=== PATIENT | female | born 1950 | race African-American/Black ===

== ENCOUNTER 2017-08-18 04:31 | Emergency (ER) | payer OTHER ==
[2017-08-18] MEDS ORDERED: NA CHLORIDE 0.9% 1,000 ML IV ONE (04:32)
[2017-08-18] MEDS ORDERED: EPINEPHrine 1 MG/10 ML SYR IV ONE (04:32)
[2017-08-18] MEDS ORDERED: D50W 25 GM/50 ML SYRINGE IV ONE ×2 (04:32)
[2017-08-18] MEDS ORDERED: ATROPINE SULF 1 MG/10 ML SYR IV ONE (04:32)
[2017-08-18] MEDS ORDERED: Magnesium Sulfate 2gm IVPB 4 G/100 ML BAG IV ONE (04:53)
[2017-08-18] MEDS ORDERED: FENTANYL CITR 100 MCG/2 ML ONE ×2 (04:55→05:38)
[2017-08-18 05:31] LABS: Blood Gas Oxyhemoglobin 88.9 % (94-97); Blood O2 Saturation 89.4 % (92-98.5)
[2017-08-18] MEDS ORDERED: NA CHLORIDE 0.9% 100 ML IV ONE (05:38)
[2017-08-18 05:59] LABS: Absolute Lymphocytes (CBC) 5.2 K/uL (0.7-4.9); Absolute Monocytes 0.6 K/uL (0.1-1.3); Absolute Neutrophil 6.9 K/uL (1.8-8.0); Basophils % 0.3 % (0-1.3); Eosinophils % 2.1 % (0-4.4); Hematocrit 37.4 % (36.0-45.0); Lymphocytes % 40.3 % (15.3-44.8); MCH 31.3 pg (27.0-35.0); MCV 102.9 fL (80-100); MPV 7.8 fL (7.6-11.3); Monocytes % 4.3 % (3.3-12.3); RBC Red Blood Cell Count 3.64 M/uL (3.86-4.86)
[2017-08-18] MEDS ORDERED: NOREPINEPHRINE 4mg/D5W 250mL 4 MG/250 ML BAG IV ONE (06:00)
[2017-08-18 06:09] LABS: Protime INR 1.14
[2017-08-18 06:14] LABS: Potassium 3.7 mEq/L (3.6-5.0)
[2017-08-18 06:18] LABS: Albumin 2.8 g/dL (3.2-5.5); Bilirubin Direct 0.1 mg/dL (0-0.2); Bilirubin Total 0.5 mg/dL (0.3-1.2); Magnesium 3.1 mg/dL (1.8-2.5); Protein, Total 6.1 g/dL (6.0-8.3)
[2017-08-18 06:22] LABS: CKMB Creatine Kinase MB 4.6 ng/ml (0.3-4.0)
[2017-08-18] MEDS ORDERED: EPINEPHrine 1 MG/10 ML SYR ONE (06:23)
[2017-08-18 06:38] LABS: Blood Gas Oxyhemoglobin 84.8 % (94-97); Blood O2 Saturation 85.7 % (92-98.5)
[2017-08-18] MEDS ORDERED: SODIUM BICARB 50 MEQ/50ML VIAL ONE (06:46)
[2017-08-18] MEDS ORDERED: NA CHLORIDE 0.9% 1,000 ML ONE (06:46)
[2017-08-18 06:51] LABS: Blood Morphology Comment NOT SEEN (NOT SEEN); Platelet Estimate ADEQ
--- NOTE | 2017-08-18 07:35 | EDPHYS ---
Physician Documentation [facility] Name: Jasmyne Patel Age: 67 yrs Sex: Female : 1950 Arrival Date: 08/18/2017 Time: 04:33 Bed 2 Private MD: ED Physician Kenneth Nix HPI: 08/18 05:22 This 67 yrs old Black Female presents to ER via Unassigned with complaints of CPR. ps1 05:22 Preceding the arrest, the patient collapsed. The arrest occurred at home. Pre-hospital ps1 course: The arrest was witnessed by EMS. Bystanders at the scene did not perform CPR. EMS care prior to arrival: initiation of ACLS, ACLS has been in progress for 3 minutes. ACLS details:. Unable to obtain HPI due to comatose state. called for lift assist. BS low. Gave D50. Went unresponsive 3 min out with HR in 30's. CPR initiated [employer]. . Historical: - Allergies: 06:56 Codeine; mg2 - Home Meds: 07:35 atenolol 100 mg Oral tab 2 tabs once daily [Active]; glipizide 5 mg Oral tab 1 tab 2 ea times per day [Active]; metformin 1,000 mg Oral tab 1 tab 2 times per day [Active]; levothyroxine 75 mcg tab 1 tab once daily [Active]; metformin 1,000 mg Oral tr24 2 tabs once daily [Active]; amlodipine 10 mg tab 1 tab once daily [Active]; aspirin 81 mg Oral chew 1 tab once daily [Active]; benzonatate 100 mg oral cap 1 cap 3 times per day [Active]; bumetanide 2 mg Oral tab 1 tab once daily [Active]; - PMHx: 06:56 Diabetes - NIDDM; Hypertension; mg2 - Immunization history:: Adult Immunizations up to date. - Social history:: Smoking status: unknown. - Ebola Screening: : No symptoms or risks identified at this time. ROS: 05:22 Unable to obtain ROS due to comatose state. ps1 Exam: 05:22 Constitutional: The patient appears comatose. ps1 05:22 Head/face: Exam is negative for obvious evidence of injury or deformity, deformity. 05:22 Eyes: Pupils: are fixed and dilated. 05:22 ENT: vomit in the oropharynx. Intubated 7.5, 23 at lips. . 05:22 Cardiovascular: pulseless. 05:22 Respiratory: agonal breathing. 05:22 Abdomen/GI: obese. 05:22 Neuro: Orientation: unable to test, the patient is comatose, Mentation: unable to test, the patient is comatose. Vital Signs: 04:50 BP 139 / 58; Pulse 113; Resp 16 A; Temp 97(C); Pulse Ox 95% on 100% FiO2 ETT vent; mg2 Weight 190.51 kg; Height 5 ft. 6 in. (167.64 cm); 05:30 BP 83 / 57; Pulse 74; Resp 16 A; Temp 97.1; Pulse Ox 91% on ETT vent; mg2 05:45 BP 89 / 55; Pulse 80; Resp 16; Pulse Ox 91% on 100% FiO2 ETT vent; mg2 06:08 BP 76 / 51; Pulse 77; Resp 16 A; Pulse Ox 89% on 100% FiO2 ETT vent; mg2 06:15 BP 90 / 49; Pulse 75; Resp 16; Pulse Ox 89% on 100% FiO2 ETT vent; mg2 06:25 BP 92 / 58; Pulse 79; Resp 16 A; Temp 97(C); Pulse Ox 90% on 100% FiO2 ETT vent; mg2 06:45 BP 102 / 65; Pulse 72; Resp 16 A; Temp 97.1(C); Pulse Ox 90% on 100% FiO2 ETT vent; mg2 07:00 BP 107 / 67; Pulse 77; Resp 16; Pulse Ox 90% on 100% FiO2 ETT vent; mg2 07:15 BP 112 / 66; Pulse 78; Resp 16 A; Temp 97.1(C); Pulse Ox 92% on 100% FiO2 ETT vent; tl2 07:30 BP 115 / 61; Pulse 87; Resp 16 A; Pulse Ox 93% on 100% FiO2 ETT vent; tl2 07:40 BP 105 / 76; Pulse 81; Resp 16 A; Pulse Ox 92% on 100% FiO2 ETT vent; tl2 08:18 BP 89 / 54; Pulse 80; Resp 16 A; Pulse Ox 93% on 100% FiO2 ETT vent; tl2 04:50 Body Mass Index 67.79 (190.51 kg, 167.64 cm) mg2 08:18 PHI Transport monitor. tl2 Brian Coma Score: 04:50 Eye Response: none(1). Verbal Response: none(1). Motor Response: none(1). Total: 3. mg2 05:22 Eye Response: none(1). Verbal Response: none(1). Motor Response: none(1). Total: 3. ps1 Ventilator: 04:50 Fi02: 100%; Rate: 16min; ET tube: 7.5 mm (Oral); mg2 05:22 Fi02: 100%; Rate: 16min; T.V.: 600ml; Peep: 5cm; ET tube: 7.5 mm (Oral); ps1 Procedures: 07:35 CPR: See CPR flow sheet. Initial patient assessment: unresponsive, agonal respirations, ps1 pupils fixed \T\ dilated, Ambu ventilation, The presenting cardiac rhythm is asystole. Compressions: began prior to arrival. regained rhythm, Family notified. Intubation: Ventilated with 100% NRB prior to procedure. Intubated orally using # 4 William blade with 7.5 mm ETT. was successful on first attempt. Ventilated with ventilator. Tube secured with ETT little at right side of mouth measured 23 cm at lip. Placement verified by CXR, Patient tolerated likely aspiration of stomach contents prior to being able to intubate. . Peripheral line: bilateral anterior tibia intraosseous line with EZ-IO. MDM: 05:51 Patient medically screened. ps1 07:35 Data reviewed: vital signs, nurses notes, EMS record, lab test result(s), EKG, ps1 radiologic studies, plain films. ED course: ACLS followed per protocol. ROSC after 20 min CPR. Lost pulses after about 10 minutes. Restarted ACLS ROSC after a round of CPR. Placed patient on levophed and bicarb gtt. Push dose epi 1mg for hypotension. Pt transferred to [facility] [place] for higher level of care. Critical. 08/18 05:30 Order name: ABG Arterial Blood Gas; Complete Time: 05:52 EDMS 08/18 05:32 Order name: BNP; Complete Time: 06:26 ps1 08/18 05:32 Order name: CBC with Diff; Complete Time: 07:23 ps1 08/18 05:32 Order name: Ckmb; Complete Time: 06:26 ps1 08/18 05:32 Order name: CPK; Complete Time: 06:26 ps1 08/18 05:32 Order name: LFT's; Complete Time: 06:26 ps1 08/18 05:32 Order name: Magnesium; Complete Time: 06:26 ps1 08/18 05:32 Order name: PT-INR; Complete Time: 06:15 ps1 08/18 05:32 Order name: Ptt, Activated; Complete Time: 06:15 ps1 06 05:32 Order name: Troponin (emerg Dept Use Only); Complete Time: 06:26 ps1 08/18 05:32 Order name: CMP; Complete Time: 06:26 ps1 08/18 06:18 Order name: Manual Differential; Complete Time: 07:23 EDMS 06 06:28 Order name: ABG; Complete Time: 07:23 ps1 08/18 05:32 Order name: XRAY Chest (1 view) ps1 08/18 05:32 Order name: EKG; Complete Time: 05:33 ps1 06 05:32 Order name: Cardiac monitoring; Complete Time: 05:56 ps1 06 05:32 Order name: EKG - Nurse/Tech; Complete Time: 05:56 ps1 08/18 05:32 Order name: IV Saline Lock; Complete Time: 05:56 ps1 06 05:32 Order name: Labs collected and sent; Complete Time: 05:56 ps1 06 05:32 Order name: O2 Per Protocol; Complete Time: 05:57 ps1 06 05:32 Order name: O2 Sat Monitoring; Complete Time: 05:57 ps1 0606 05:32 Order name: Urine Dipstick-Ancillary (obtain specimen); Complete Time: 05:57 ps1 Administered Medications: 04:35 Drug: EPINEPHrine 0.1mg/mL 1:10,000 1 mg Route: IVP; Site: Other; mg2 04:39 Follow up: Response: No adverse reaction; No change in condition tl2 04:35 Drug: D50W 50 ml Route: IVP; Site: Other; mg2 08:04 Follow up: Response: No adverse reaction tl2 04:36 Drug: NS 0.9% 1000 ml Route: IV; Rate: 1 bolus; Site: Other; mg2 08:04 Follow up: IV Status: Completed infusion; IV Intake: 1000ml tl2 04:38 Drug: EPINEPHrine 0.1mg/mL 1:10,000 1 mg Route: IVP; Site: Other; mg2 04:41 Follow up: Response: No adverse reaction; No change in condition tl2 04:41 Drug: EPINEPHrine 0.1mg/mL 1:10,000 1 mg Route: IVP; Site: Other; mg2 04:43 Follow up: Response: No adverse reaction; No change in condition tl2 04:42 Drug: Sodium Bicarbonate 1 amp Route: IVP; Site: Other; mg2 04:45 Follow up: Response: No adverse reaction; No change in condition tl2 04:44 Drug: EPINEPHrine 0.1mg/mL 1:10,000 1 mg Route: IVP; Site: Other; mg2 04:47 Follow up: Response: No adverse reaction; Cardiac rhythm changed tl2 04:47 Drug: Atropine 1 mg Route: IVP; Site: Other; mg2 04:51 Follow up: Response: No adverse reaction; Cardiac rhythm changed tl2 04:53 Drug: Magnesium Sulfate 4 grams Route: IVPB; Infused Over: 2 hrs; Site: Other; mg2 06:30 Follow up: IV Status: Completed infusion tl2 04:54 Drug: fentaNYL (PF) 100 mcg Route: IVP; Site: right hand; mg2 08:06 Follow up: Response: No adverse reaction tl2 05:10 Drug: EPINEPHrine 0.1mg/mL 1:10,000 1 mg Route: IVP; Site: Other; mg2 05:13 Follow up: Response: No adverse reaction; Cardiac rhythm changed tl2 05:33 CANCELLED (Duplicate Order): fentaNYL (PF) 1 mcg/kg/h IV at calculated rate once tl2 05:55 Drug: fentaNYL (PF) 50 mcg/h {Note: started at 50 mcg/hour.} Route: IV; Rate: tl2 calculated rate; Infused Over: 1 Titrate; Site: right hand; Delivery: Primary tubing; 08:02 Follow up: IV Status: Infusion continued upon transfer tl2 06:00 Drug: Levophed (4 mg/250 mL D5W 4 mcg/min Route: IV; Rate: calculated rate; Site: Other;mg2 08:07 Follow up: IV Status: Infusion continued upon transfer tl2 06:10 Drug: NS 0.9% 1000 ml {Note: left IO.} Route: IV; Rate: 200 ml/hr; Site: Other; bb 08:12 Follow up: IV Status: Infusion continued upon transfer bb 06:22 Drug: EPINEPHrine 0.1mg/mL 1:10,000 1 mg Route: IVP; Site: right antecubital; ea 06:25 Follow up: Response: No adverse reaction; No change in condition tl2 06:22 Drug: Sodium Bicarbonate 1 amp Route: IVP; Site: Other; mg2 08:07 Follow up: Response: No adverse reaction tl2 Point of Care Testing: Blood Glucose: 04:50 Blood Glucose: 347 mg/dL; mg2 Ranges: Critical Glucose Levels:Adult <50 mg/dl or >400 mg/dl <40 mg/dl or >180 mg/dl Disposition: 07:35 Critical Care:. ps1 07:40 Chart complete. ps1 Disposition: 08/18/17 07:34 Transfer ordered to [facility]. Diagnosis are POST ARREST, CPR. - Reason for transfer: Higher level of care. - Accepting physician is Omarazakian. - Condition is Critical. - Problem is new. - Symptoms have improved. Critical care time excluding procedures: 07:35 Critical care time: Bedside Care: 65 minutes, Consultation: 10 minutes, Family ps1 Intervention: 20 minutes. Total time: 95 minutes Signatures: Dispatcher [employer] EDMS Lela Guzmán RN RN bb Elise Hogue RN RN hb Isaura Holden RN RN tl2 Leslie Briones RN RN ea Singer, Phillip, MD MD ps1 Clifford Camilo RN RN mg2 Corrections: (The following items were deleted from the chart) 05:33 05:32 fentaNYL (PF) 1 mcg/kg/h IV at calculated rate once ordered. ps1 tl2 05:52 05:33 Arterial Blood Gas+RC.LAB.BRZ ordered. EDKY EDMS 07:35 07:34 08/18/2017 07:34 Transfer ordered to [facility]. Diagnosis is ps1 POST ARREST. Reason for transfer: Higher level of care. Accepting physician is Omarainian. Condition is Critical. Problem is new. Symptoms have improved. ps1 07:38 06:56 Home Meds: Unable to obtain; mg2 ea 08:41 07:35 08/18/2017 07:34 Transfer ordered to [facility]. Diagnosis is hb POST ARREST; CPR. Reason for transfer: Higher level of care. Accepting physician is Omarainian. Condition is Critical. Problem is new. Symptoms have improved. ps1
--- NOTE | 2017-08-18 07:35 | ER ---
Nurse's Notes [facility] Name: Jasmyne Patel Age: 67 yrs Sex: Female : 1950 Arrival Date: 08/18/2017 Time: 04:33 Bed 2 Private MD: Diagnosis: POST ARREST;CPR Presentation: 08/18 04:30 Presenting complaint: EMS states: Called out for lift assist and possible blood sugar mg2 problem. Pt was sitting on the floor, was AOx4, initial BGL was 220. Family had given pt orange juice. Repeat BGL was 420. Pt became unresponsive en route to ER and was asystole in triage. CPR started at 0425. Care prior to arrival: CPR manually performed by EMS and is still in progress. Compressions began at 04:25. 04:30 Transition of care: patient was not received from another setting of care. Onset of mg2 symptoms was August 18, 2017 at 04:00. Risk Assessment: Do you want to hurt yourself or someone else? Patient reports no desire to harm self or others. Initial Sepsis Screen: Does the patient meet any 2 criteria? No. Patient's initial sepsis screen is negative. Does the patient have a suspected source of infection? No. Patient's initial sepsis screen is negative. 04:30 Acuity: ANKITA 1 mg2 04:30 Method Of Arrival: EMS: [facility] mg2 Triage Assessment: 04:30 General: see CPR assessment. mg2 04:30 General: Appears unresponsive. Pain: Unable to use pain scale. Patient is unresponsive. tl2 Historical: - Allergies: 06:56 Codeine; mg2 - Home Meds: 07:35 atenolol 100 mg Oral tab 2 tabs once daily [Active]; glipizide 5 mg Oral tab 1 tab 2 ea times per day [Active]; metformin 1,000 mg Oral tab 1 tab 2 times per day [Active]; levothyroxine 75 mcg tab 1 tab once daily [Active]; metformin 1,000 mg Oral tr24 2 tabs once daily [Active]; amlodipine 10 mg tab 1 tab once daily [Active]; aspirin 81 mg Oral chew 1 tab once daily [Active]; benzonatate 100 mg oral cap 1 cap 3 times per day [Active]; bumetanide 2 mg Oral tab 1 tab once daily [Active]; - PMHx: 06:56 Diabetes - NIDDM; Hypertension; mg2 - Immunization history:: Adult Immunizations up to date. - Social history:: Smoking status: unknown. - Ebola Screening: : No symptoms or risks identified at this time. Screenin:30 Abuse screen: Denies threats or abuse. Nutritional screening: No deficits noted. mg2 Tuberculosis screening: No symptoms or risk factors identified. 07:00 Fall Risk None identified. mg2 Assessment: 04:30 CPR assessment: unresponsive, pupils fixed \T\ dilated, no respiratory effort, Ambu mg2 ventilation, pale, pulses present w/ compressions. Cardiac rhythm is asystole. General: Behavior is unresponsive. Neuro: Level of Consciousness is unresponsive. EENT:. Cardiovascular: Rhythm is asystole. Respiratory: Airway is patent Respiratory pattern is apnea. Derm: Skin is pale. 04:37 Reassessment: Pulse check: No pulse CPR continued. mg2 04:41 Reassessment: No pulse, no cardiac movement on US, CPR continued. mg2 04:43 Reassessment: No pulse, asystole, CPR continued. mg2 04:45 Reassessment: PEA, no pulse, CPR continued. mg2 04:47 Reassessment: Positive pulse, Maurizio rhythm that spiked to 126 before settling at 85. mg2 EKG obtained at this time. 05:09 Reassessment: No pulse at this time, CPR started. PEA. mg2 05:11 Reassessment: No pulse, PEA, CPR continued. mg2 05:13 Reassessment: Positive pulse HR 87 on monitor. New orders from , see MAR. mg2 06:20 Reassessment: Pt continues to have strong radial pulse. See MAR for medication orders. mg2 Awaiting to call report and will call for helicopter. 08:14 Reassessment: PHI at bedside, report given to Flight nurse. Pt intubated with ET tube tl2 in place, OG tube in place, IV sites intact with fluid infusing, limon catheter in place, Pt family at bedside. Vital Signs: 04:50 BP 139 / 58; Pulse 113; Resp 16 A; Temp 97(C); Pulse Ox 95% on 100% FiO2 ETT vent; mg2 Weight 190.51 kg; Height 5 ft. 6 in. (167.64 cm); 05:30 BP 83 / 57; Pulse 74; Resp 16 A; Temp 97.1; Pulse Ox 91% on ETT vent; mg2 05:45 BP 89 / 55; Pulse 80; Resp 16; Pulse Ox 91% on 100% FiO2 ETT vent; mg2 06:08 BP 76 / 51; Pulse 77; Resp 16 A; Pulse Ox 89% on 100% FiO2 ETT vent; mg2 06:15 BP 90 / 49; Pulse 75; Resp 16; Pulse Ox 89% on 100% FiO2 ETT vent; mg2 06:25 BP 92 / 58; Pulse 79; Resp 16 A; Temp 97(C); Pulse Ox 90% on 100% FiO2 ETT vent; mg2 06:45 BP 102 / 65; Pulse 72; Resp 16 A; Temp 97.1(C); Pulse Ox 90% on 100% FiO2 ETT vent; mg2 07:00 BP 107 / 67; Pulse 77; Resp 16; Pulse Ox 90% on 100% FiO2 ETT vent; mg2 07:15 BP 112 / 66; Pulse 78; Resp 16 A; Temp 97.1(C); Pulse Ox 92% on 100% FiO2 ETT vent; tl2 07:30 BP 115 / 61; Pulse 87; Resp 16 A; Pulse Ox 93% on 100% FiO2 ETT vent; tl2 07:40 BP 105 / 76; Pulse 81; Resp 16 A; Pulse Ox 92% on 100% FiO2 ETT vent; tl2 08:18 BP 89 / 54; Pulse 80; Resp 16 A; Pulse Ox 93% on 100% FiO2 ETT vent; tl2 04:50 Body Mass Index 67.79 (190.51 kg, 167.64 cm) mg2 08:18 PHI Transport monitor. tl2 [place] Coma Score: 04:50 Eye Response: none(1). Verbal Response: none(1). Motor Response: none(1). Total: 3. mg2 05:22 Eye Response: none(1). Verbal Response: none(1). Motor Response: none(1). Total: 3. ps1 ED Course: 04:30 Arm band placed on right wrist. mg2 04:30 Patient has correct armband on for positive identification. Bed in low position. mg2 Intubation: 7.5 Fr. ETT placed orally. Performed by Kenneth Nix MD Successful on first attempt. Placement verified by CXR, CO2 detector w/ + color change, auscultating bilateral breath sounds, Ventilated with Ambu bag. 04:33 Patient arrived in ED. rg2 04:35 Inserted intraosseous access in left, using aseptic technique tibial tuberosity. placed mg2 by Dr. Nix. Inserted intraosseous access in right, using aseptic technique tibial tuberosity. placed by Dr. Nix. 04:50 Inserted saline lock: 22 gauge in right hand, using aseptic technique. mg2 04:53 Kenneth Nix MD is Attending Physician. rg2 05:00 NGT: inserted 16 Fr. via right nare. verified placement of air over stomach, verified mg2 return of gastric contents, to intermittent suction. 05:30 Limon cath inserted, using sterile technique, 16 Fr., by ED staff, balloon inflated. mg2 06:00 Inserted saline lock: 18 gauge in right antecubital area, using aseptic technique. mg2 Blood collected. 06:11 Triage completed. mg2 06:15 Notified ED physician of a critical lab result(s). CO2 14, BGL 619, Dr Nix notified bb awaiting new orders. 06:30 X-ray completed. Portable x-ray completed in exam room. Patient tolerated procedure kw well. 06:35 XRAY Chest (1 view) In Process Unspecified. EDMS 07:13 Clifford Camilo, RN is Primary Nurse. mg2 08:01 No provider procedures requiring assistance completed. Patient transferred, IV remains tl2 in place. Administered Medications: 04:35 Drug: EPINEPHrine 0.1mg/mL 1:10,000 1 mg Route: IVP; Site: Other; mg2 04:39 Follow up: Response: No adverse reaction; No change in condition tl2 04:35 Drug: D50W 50 ml Route: IVP; Site: Other; mg2 08:04 Follow up: Response: No adverse reaction tl2 04:36 Drug: NS 0.9% 1000 ml Route: IV; Rate: 1 bolus; Site: Other; mg2 08:04 Follow up: IV Status: Completed infusion; IV Intake: 1000ml tl2 04:38 Drug: EPINEPHrine 0.1mg/mL 1:10,000 1 mg Route: IVP; Site: Other; mg2 04:41 Follow up: Response: No adverse reaction; No change in condition tl2 04:41 Drug: EPINEPHrine 0.1mg/mL 1:10,000 1 mg Route: IVP; Site: Other; mg2 04:43 Follow up: Response: No adverse reaction; No change in condition tl2 04:42 Drug: Sodium Bicarbonate 1 amp Route: IVP; Site: Other; mg2 04:45 Follow up: Response: No adverse reaction; No change in condition tl2 04:44 Drug: EPINEPHrine 0.1mg/mL 1:10,000 1 mg Route: IVP; Site: Other; mg2 04:47 Follow up: Response: No adverse reaction; Cardiac rhythm changed tl2 04:47 Drug: Atropine 1 mg Route: IVP; Site: Other; mg2 04:51 Follow up: Response: No adverse reaction; Cardiac rhythm changed tl2 04:53 Drug: Magnesium Sulfate 4 grams Route: IVPB; Infused Over: 2 hrs; Site: Other; mg2 06:30 Follow up: IV Status: Completed infusion tl2 04:54 Drug: fentaNYL (PF) 100 mcg Route: IVP; Site: right hand; mg2 08:06 Follow up: Response: No adverse reaction tl2 05:10 Drug: EPINEPHrine 0.1mg/mL 1:10,000 1 mg Route: IVP; Site: Other; mg2 05:13 Follow up: Response: No adverse reaction; Cardiac rhythm changed tl2 05:33 CANCELLED (Duplicate Order): fentaNYL (PF) 1 mcg/kg/h IV at calculated rate once tl2 05:55 Drug: fentaNYL (PF) 50 mcg/h {Note: started at 50 mcg/hour.} Route: IV; Rate: tl2 calculated rate; Infused Over: 1 Titrate; Site: right hand; Delivery: Primary tubing; 08:02 Follow up: IV Status: Infusion continued upon transfer tl2 06:00 Drug: Levophed (4 mg/250 mL D5W 4 mcg/min Route: IV; Rate: calculated rate; Site: Other;mg2 08:07 Follow up: IV Status: Infusion continued upon transfer tl2 06:10 Drug: NS 0.9% 1000 ml {Note: left IO.} Route: IV; Rate: 200 ml/hr; Site: Other; bb 08:12 Follow up: IV Status: Infusion continued upon transfer bb 06:22 Drug: EPINEPHrine 0.1mg/mL 1:10,000 1 mg Route: IVP; Site: right antecubital; ea 06:25 Follow up: Response: No adverse reaction; No change in condition tl2 06:22 Drug: Sodium Bicarbonate 1 amp Route: IVP; Site: Other; mg2 08:07 Follow up: Response: No adverse reaction tl2 Point of Care Testing: Blood Glucose: 04:50 Blood Glucose: 347 mg/dL; mg2 Ranges: Intake: 08:04 IV: 1000ml; Total: 1000ml. tl2 Ventilator: 04:50 Fi02: 100%; Rate: 16min; ET tube: 7.5 mm (Oral); mg2 05:22 Fi02: 100%; Rate: 16min; T.V.: 600ml; Peep: 5cm; ET tube: 7.5 mm (Oral); ps1 Outcome: 05:13 Outcome Resuscitation successful tl2 06:30 Transferred by helicopter to [facility] [place], Transfer form completed. tl2 06:30 critical 07:34 ER care complete, transfer ordered by . ps1 08:41 Patient left the ED. Signatures: Dispatcher [employer] EDMS Jazz Lim rg2 Lela Guzmán RN RN bb Faustina Sierra Heather, RN RN Isaura Holden RN RN tl2 Leslie Briones RN RN ea Singer, Phillip, MD MD ps1 Clifford Camilo RN RN mg2 Corrections: (The following items were deleted from the chart) :55 06:09 Presenting complaint: EMS states: Called out for lift assist and possible blood mg2 sugar problem. Pt was sitting on the floor, was AOx4, initial BGL was 220. Family had given pt orange juice. Repeat BGL was 420. Pt became unresponsive en route to ER and was asystole in triage. CPR started at 0425. mg2 06:09 Care prior to arrival: CPR manually performed by EMS and is still in progress mg2 mg2 06:09 Compressions began at 04:25. mg2 mg2 06:09 Method Of Arrival: EMS: [facility] mg2 mg2 06:09 Acuity: ANKITA 1 mg2 mg2 07:38 06:56 Home Meds: Unable to obtain; mg2 ea
--- NOTE | 2017-08-18 07:38 | EKG ---
Test Date: 2017-08-18 Test Time: 04:58:33 Sheet Metal Worker Supervisor: AIXA MEASUREMENT RESULTS: Intervals: Rate: 69 IA: QRSD: 154 QT: 446 QTc: 477 [place]: P: IA: QRS: -82 T: 56 INTERPRETIVE STATEMENTS: Sinus rhythm Left axis deviation Right bundle branch block Possible Lateral infarct, age undetermined Inferior infarct, age undetermined Abnormal ECG No previous ECG available for comparison Electronically Signed On 08-18-17 07:37:33 CDT by Devonte Chandra
[2017-08-18] MEDS ORDERED: NA CHLORIDE IV SCH ×2 (08:00)
[2017-08-18] MEDS ORDERED: NA BICARB IV SCH ×2 (08:00)
--- NOTE | 2017-08-18 08:20 | RAD REPORT ---
EXAM DESCRIPTION: Nuno Single View08/18/2017 6:35 am CLINICAL HISTORY: Shortness of breath COMPARISON: none FINDINGS: An endotracheal tube is been inserted with its tip well above the keyla. Mild bilateral pulmonary opacities are suspected. The right lateral lung base is not included in the field of view a nd is not evaluated. The mediastinum is mildly prominent. The heart is mildly enlarged. A nasogastric tube is in place. IMPRESSION: Endotracheal tube with its tip well above the keyla Mild bilateral pulmonary opacities may represent mild pulmonary edema or aspiration. Mild cardiomegaly Mild prominence of the mediastinum probably secondary to confluence of normal vessels. This can be mo nitored on a subsequent exam
[2017-08-18] MEDS ORDERED: NOREPINEPHRINE 4 MG in D5W 250 ML IV PRN (08:33)
[2017-08-18] MEDS ORDERED: NA CHLORIDE 0.9% 250 ML ONE (08:35)
== END 2017-08-18 08:41 | disposition short-term general hospital (02) ==
LOC: ER 04:31
PROC: 0BH17EZ Insertion of Endotracheal Airway into Trachea, Via Natural or Artificial Opening (ICD-10-PCS; principal; 2017-08-18)
PROC: 5A1935Z Respiratory Ventilation, Less than 24 Consecutive Hours (ICD-10-PCS; 2017-08-18)
DX: I46.9 Cardiac arrest, cause unspecified (principal); I10 Essential (primary) hypertension; E11.9 Type 2 diabetes mellitus without complications; Z79.82 Long term (current) use of aspirin; Z88.5 Allergy status to narcotic agent
CPT/HCPCS: 31500; 36415; 36569; 71045; 80053; 80076; 82550; 82553; 82805 ×2; 83735; 83880; 84484; 85025; 85610; 85730; 93005; 94002; J0171 ×2; J3010 ×2; J3475; J7030 ×3; J7060; 36680; 51702; 92950; 99291; 99292